=== PATIENT | female | born 1930 | race Asian ===

== ENCOUNTER 2016-12-06 17:08 | Inpatient (IN) | payer MEDICARE, MEDICAID ==
[~2016-12-06] VITALS: Ht 154.9 cm; Wt 59.0 kg
[~2016-12-06 17:08] MED LIST: ATARAX25 MG PO; CELEBREX100 MG PO; DIOVAN HCT 80-1 EACH PO; DOCUSATE SODIU250 MG PO; GABAPENTIN100 MG PO; GLUCOPHAGE500 MG PO; JANUVIA100 MG PO; PLAVIX75 MG PO; STARLIX120 MG PO; Vitamin D2 PO
[2016-12-06 17:35] VITALS: BP 159/63
[2016-12-06] MEDS ORDERED: Mylanta II UD 30ml ORAL PRN (20:45)
[2016-12-06] MEDS ORDERED: LORazepam Inj 2mg/ml 1ml IV PRN (20:45)
[2016-12-06] MEDS ORDERED: Zolpidem 5mg tab ORAL PRN (20:45)
[2016-12-06 20:56] VITALS: BP 149/63
[2016-12-06] MEDS ORDERED: HydrOXYzine 25mg tab ORAL PRN (21:00)
[2016-12-06 21:35] LABS: APPEARANCE,URINE CLEAR; KETONES,URINE NEGATIVE (NEGATIVE); LEUKOCYTE ESTERASE ,URINE NEGATIVE (NEGATIVE); NITRITE,URINE NEGATIVE (NEGATIVE); PH,URINE 8 (4.5-8.0); PROTEIN,URINE NEGATIVE (NEGATIVE); UROBILINOGEN,URINE NORMAL MG/DL (0.0-1.0)
[2016-12-06 21:41] LABS: ANION GAP 13 (5-15); BASOPHILS % (AUTO) 1.3 % (0.0-2.0); CALCIUM 9.5 mg/dL (8.6-10.2); CARBON DIOXIDE 26 mEQ/L (20-30); CHLORIDE 89 mEQ/L (98-107); CREATININE 0.8 mg/dL (0.5-0.9); EOSINOPHILS % (AUTO) 1.6 % (0.0-3.0); HEMOLYSIS 27; LYMPHOCYTES % (AUTO) 17.1 % (20.0-45.0); MEAN CORPUSCULAR HEMOGLOBIN 34.4 PG (27.0-31.0); MEAN CORPUSCULAR HGB CONC 36.8 G/DL (32.0-36.0); MEAN CORPUSCULAR VOLUME 93 FL (80-99); MEAN PLATELET VOLUME 6.2 FL (6.5-10.1); MONOCYTES % (AUTO) 8.3 % (1.0-10.0); NEUTROPHILS % (AUTO) 71.7 % (45.0-75.0); PLATELET COUNT 279 K/UL (150-450); POTASSIUM 4.9 mEQ/L (3.4-4.9); RED BLOOD COUNT 4.14 M/UL (4.20-5.40); RED CELL DISTRIBUTION WIDTH 10.6 % (11.6-14.8); SODIUM 128 mEQ/L (135-145); WHITE BLOOD COUNT 11.7 K/UL (4.8-10.8)
--- NOTE | 2016-12-06 21:50 | Emergency Room Report ---
History of Present Illness General Chief Complaint: Multiple Trauma/Fall Source: Patient, Medical Record Present Illness HPI This patient was using her walker and was trying to turn and lost her balance and fell onto her left side. She fell onto her left shoulder and left knee. She complains of severe pain in her left shoulder and knee whenever she attempts to move either joint. She denies hip pain. She denies head injury. She denies neck pain. She denies chest pain or shortness of breath. She denies abdominal pain. She has no other complaints. Allergies: Coded Allergies: No Known Allergies (Verified , 09/22/12) Patient History Past Medical History: see triage record, DM, HTN, dementia Social History: Denies: alcohol use, drug use, smoking Last Menstrual Period: post Now: No : 5 Para: 5 Reviewed Nursing Documentation: PMH: Agreed, PSxH: Agreed Nursing Documentation-PMH Past Medical History: No History, Except For Hx Cardiac Problems: Yes Hx Hypertension: Yes Hx Diabetes: Yes - 1986 Hx Cancer: No Hx Gastrointestinal Problems: Yes Hx Neurological Problems: No Review of Systems All Other Systems: negative except mentioned in HPI Physical Exam Vital Signs Date Time Temp Pulse Resp B/P Pulse Ox O2 Delivery O2 Flow Rate FiO2 12/06/16 17:03 97.0 88 18 174/79 99 12/06/16 17:35 Room Air Sp02 EP Interpretation: reviewed, normal General Appearance: no apparent distress, alert, GCS 15, non-toxic Head: normocephalic, atraumatic Eyes: bilateral eye PERRL, bilateral eye normal inspection ENT: hearing grossly normal, normal pharynx, no angioedema, normal voice Neck: full range of motion, supple/symm/no masses Respiratory: chest non-tender, lungs clear, normal breath sounds, speaking full sentences Cardiovascular #1: regular rate, rhythm, no edema Gastrointestinal: normal bowel sounds, non tender, soft, non-distended, no guarding, no rebound Rectal: deferred Musculoskeletal: back normal, other - Range of motion limited in the left shoulder secondary to pain. However, able to range of motion passively. Left knee with pain with range of motion. Tender to palpation over the patella with associated swelling. Neurologic: alert, oriented x3, responsive, motor strength/tone normal, sensory intact, speech normal Psychiatric: judgement/insight normal, mood/affect normal, no suicidal/ homicidal ideation Skin: normal color, no rash, warm/dry, well hydrated Medical Decision Making Diagnostic Impression: Primary Impression: Shoulder injury Additional Impressions: Rotator cuff injury Patella fracture ER Course This elderly female presents status post mechanical fall. She is unable to ambulate. She is found to have a nondisplaced patellar fracture. Likely she also has a rotator cuff tear. The patient was placed in a knee immobilizer and a sling for her left arm. The family is very concerned as they were unable to get her up from the couch despite multiple people attempting. This patient will be admitted for pain control and possible placement in a rehabilitation facility. Labs Test 12/06/16 21:05 White Blood Count 11.7 K/UL (4.8-10.8) Red Blood Count 4.14 M/UL (4.20-5.40) Hemoglobin 14.2 G/DL (12.0-16.0) Hematocrit 38.6 % (37.0-47.0) Mean Corpuscular Volume 93 FL (80-99) Mean Corpuscular Hemoglobin 34.4 PG (27.0-31.0) Mean Corpuscular Hemoglobin Concent 36.8 G/DL (32.0-36.0) Red Cell Distribution Width 10.6 % (11.6-14.8) Platelet Count 279 K/UL (150-450) Mean Platelet Volume 6.2 FL (6.5-10.1) Neutrophils (%) (Auto) 71.7 % (45.0-75.0) Lymphocytes (%) (Auto) 17.1 % (20.0-45.0) Monocytes (%) (Auto) 8.3 % (1.0-10.0) Eosinophils (%) (Auto) 1.6 % (0.0-3.0) Basophils (%) (Auto) 1.3 % (0.0-2.0) Urine Color Pale yellow Urine Appearance Clear Urine pH 8 (4.5-8.0) Urine Specific [place] 1.010 (1.005-1.035) Urine Protein Negative (NEGATIVE) Urine Glucose (UA) 3+ (NEGATIVE) Urine Ketones Negative (NEGATIVE) Urine Occult Blood Negative (NEGATIVE) Urine Nitrite Negative (NEGATIVE) Urine Bilirubin Negative (NEGATIVE) Urine Urobilinogen Normal MG/DL (0.0-1.0) Urine Leukocyte Esterase Negative (NEGATIVE) Sodium Level 128 mEQ/L (135-145) Potassium Level 4.9 mEQ/L (3.4-4.9) Chloride Level 89 mEQ/L (98-107) Carbon Dioxide Level 26 mEQ/L (20-30) Anion Gap 13 (5-15) Blood Urea Nitrogen 16 mg/dL (7-23) Creatinine 0.8 mg/dL (0.5-0.9) Estimat Glomerular Filtration Rate mL/min (>60) Glucose Level 138 mg/dL (74-106) Calcium Level 9.5 mg/dL (8.6-10.2) Last Vital Signs Date Time Temp Pulse Resp B/P Pulse Ox O2 Delivery O2 Flow Rate FiO2 12/06/16 20:56 97.0 78 22 149/63 99 Room Air Disposition: ADMITTED INPATIENT Condition: Stable Referrals: NON PHYSICIAN (PCP) DOMINIQUE CHONG D.O. Dec 06, 2016 21:50
[2016-12-06 21:53] LABS: RBC,URINE 0 /HPF (0 - 2); WBC,URINE 0 /HPF (0 - 2)
[2016-12-06] MEDS: NovoLOG Insulin Flexpen SUBQ SCH (22:00)
[2016-12-06 22:01] VITALS: BP 143/66
[2016-12-07] VITALS: BP 154/86
[2016-12-07] MEDS: Heparin 5000 units/ml inj SUBQ SCH ×3 (00:10→21:59)
[2016-12-07] MEDS: NovoLOG Insulin Flexpen SUBQ SCH ×3 (00:11→11:30)
[2016-12-07 04:48] VITALS: BP 159/78
[2016-12-07] MEDS: Morphine Sulfate 2mg/ml Inj IVP PRN ×2 (05:39→10:42)
[2016-12-07 07:05] LABS: BASOPHILS % (AUTO) 0.9 % (0.0-2.0); EOSINOPHILS % (AUTO) 2.9 % (0.0-3.0); LYMPHOCYTES % (AUTO) 13.9 % (20.0-45.0); MEAN CORPUSCULAR HEMOGLOBIN 31.6 PG (27.0-31.0); MEAN CORPUSCULAR VOLUME 90 FL (80-99); MEAN PLATELET VOLUME 6.5 FL (6.5-10.1); MONOCYTES % (AUTO) 9.4 % (1.0-10.0); NEUTROPHILS % (AUTO) 72.9 % (45.0-75.0); PLATELET COUNT 309 K/UL (150-450); RED CELL DISTRIBUTION WIDTH 10.6 % (11.6-14.8); WHITE BLOOD COUNT 9.7 K/UL (4.8-10.8)
[2016-12-07 08:00] VITALS: BP 163/76
[2016-12-07 08:47] LABS: ALANINE AMINOTRANSFERASE 11 U/L (3-33); ALBUMIN/GLOBULIN RATIO 1.3 (1.0-2.7); ANION GAP 10 (5-15); ASPARTATE AMINO TRANSFERASE 15 U/L (5-40); CALCIUM 9.1 mg/dL (8.6-10.2); CARBON DIOXIDE 28 mEQ/L (20-30); CHLORIDE 89 mEQ/L (98-107); CREATININE 0.8 mg/dL (0.5-0.9); HEMOLYSIS 17; POTASSIUM 4.7 mEQ/L (3.4-4.9); SODIUM 127 mEQ/L (135-145); TOTAL PROTEIN 6.9 g/dL (6.6-8.7)
[2016-12-07] MEDS: Miralax 17gm pkt ORAL PRN (09:11)
--- NOTE | 2016-12-07 10:20 | Diagnostic Imaging Report ---
Indications: Shoulder trauma, pain Technique: AP and lateral left shoulder Findings: Comparison: None There is suggestion of cortical discontinuity at the margins of the greater tuberosity of the left humeral head. No additional fracture, dislocation, joint space widening, overlying soft tissue swelling/mass/foreign body or other acute change identified. IMPRESSION: Suggestion of nondisplaced fracture through the greater tuberosity of the left humeral head. This finding not described in [facility] preliminary report, significant discrepancy.
--- NOTE | 2016-12-07 10:24 | Diagnostic Imaging Report ---
Indications: Chest trauma, pain Technique: Portable AP chest Findings: Comparison: 09/23 12 Cardiac silhouette remains normal in size. Pulmonary vasculature remains within normal limits. Linear densities again noted in right midlung. Lungs and pleura remain otherwise clear. Calcification and elongation of the aortic arch again noted. Questionable lucency traversing base and visualized portion of the greater tuberosity of left humerus not seen previously.. IMPRESSION: Questionable fracture greater tuberosity left humeral head. This finding not described in [facility] preliminary report. No other evidence of acute injury or other acute pathology stable chronic changes as described
--- NOTE | 2016-12-07 10:59 | History and Physical ---
History of Present Illness General Date patient seen: Dec 07, 2016 Time patient seen: 10:15 Reason for Hospitalization: Multiple Trauma/Fall Present Illness HPI 86 y/old female with hx of HTN, DM, left eye blindness was using her walker and was trying to turn, but instead lost her balance and fell onto her left side. She fell onto her left shoulder and left knee. She complained of severe pain in her left shoulder and knee whenever she attempted to move either joint. Unable to ambulate She denies hip pain. She denied head injury. She denied neck pain. She denied chest pain or shortness of breath. She denied abdominal pain. She had no other complaints. Workuo revealed mild leukocytosis, UA negative Na 128 CXR with Questionable fracture greater tuberosity left humeral head. left shoulder X ray with nondisplaced fracture through the greater tuberosity of the left humeral head. left knee X ray - suggestive iof nondisplaced fracture of the mid -patella. Allergies: Coded Allergies: No Known Allergies (Verified , 09/22/12) Medication History Scheduled Celecoxib* (Celebrex*), 100 MG PO BID, (Reported) Clopidogrel Bisulfate* (Plavix*), 75 MG PO DAILY, (Reported) Docusate Sodium* (Docusate Sodium*), 250 MG PO TID, (Reported) Gabapentin* (Gabapentin*), 100 MG PO HS, (Reported) Hydroxyzine HCl (Hydroxyzine HCl), 25 MG PO QID, (Reported) Metformin Hcl* (Glucophage*), 500 MG PO BID, (Reported) Nateglinide (Starlix), 120 MG PO TID, (Reported) Sitagliptin (Januvia), 100 MG PO DAILY, (Reported) Valsartan/Hydrochlorothiazide 80-12.5MG (Diovan Hct 80-12.5 Mg Tablet), 1 TAB PO DAILY, (Reported) Miscellaneous Medications [Vitamin D2], 1.25 MG PO, (Reported) Patient History History Provided By: Medical Record Healthcare decision maker IMELDA MATHEW, GRANDDAUGHTER ([phone]) Resuscitation status Full Code Advanced Directive on File No Review of Systems ROS Narrative unavailable due to patient LOC Physical Exam General Appearance: no apparent distress, alert, other - awake, alert, no acute distress , elderly, Polish speaking female Lines, tubes and drains: peripheral HEENT: normocephalic, atraumatic, anicteric, mucous membranes moist, PERRL, other - L eye blind Neck: non-tender, supple Respiratory/Chest: lungs clear, no respiratory distress, no accessory muscle use Cardiovascular/Chest: normal peripheral pulses, normal rate, no JVD Abdomen: normal bowel sounds, non tender, soft Extremities: other - LUE in sling, NV intact , L knee with knee immobilizer Skin Exam: normal pigmentation, warm/dry Neurologic: abnormal gait - baseline with walker , alert Musculoskeletal: atrophy - BLE, weakness BLE Last 24 Hour Vital Signs Date Time Temp Pulse Resp B/P Pulse Ox O2 Delivery O2 Flow Rate FiO2 12/07/16 08:00 97.4 83 18 163/76 97 Room Air 12/07/16 06:09 97.5 12/07/16 04:48 97.5 77 20 159/78 97 Room Air 12/07/16 00:00 97.5 77 20 154/86 98 Room Air 12/06/16 22:15 97.0 74 22 143/66 99 Room Air 12/06/16 22:01 97.0 74 22 143/66 99 Room Air 12/06/16 20:56 97.0 78 22 149/63 99 Room Air 12/06/16 17:35 97.0 75 22 159/63 99 Room Air 12/06/16 17:03 97.0 88 18 174/79 99 Intake and Output 12/06/16 12/07/16 19:00 07:00 Intake Total 252 ml Balance 252 ml Intake Oral 252 ml Laboratory Tests Test 12/06/16 21:05 12/07/16 05:10 White Blood Count 11.7 K/UL (4.8-10.8) H 9.7 K/UL (4.8-10.8) Red Blood Count 4.14 M/UL (4.20-5.40) L 4.00 M/UL (4.20-5.40) L Hemoglobin 14.2 G/DL (12.0-16.0) 12.7 G/DL (12.0-16.0) Hematocrit 38.6 % (37.0-47.0) 36.2 % (37.0-47.0) L Mean Corpuscular Volume 93 FL (80-99) 90 FL (80-99) Mean Corpuscular Hemoglobin 34.4 PG (27.0-31.0) H 31.6 PG (27.0-31.0) H Mean Corpuscular Hemoglobin Concent 36.8 G/DL (32.0-36.0) H 35.0 G/DL (32.0-36.0) Red Cell Distribution Width 10.6 % (11.6-14.8) L 10.6 % (11.6-14.8) L Platelet Count 279 K/UL (150-450) 309 K/UL (150-450) Mean Platelet Volume 6.2 FL (6.5-10.1) L 6.5 FL (6.5-10.1) Neutrophils (%) (Auto) 71.7 % (45.0-75.0) 72.9 % (45.0-75.0) Lymphocytes (%) (Auto) 17.1 % (20.0-45.0) L 13.9 % (20.0-45.0) L Monocytes (%) (Auto) 8.3 % (1.0-10.0) 9.4 % (1.0-10.0) Eosinophils (%) (Auto) 1.6 % (0.0-3.0) 2.9 % (0.0-3.0) Basophils (%) (Auto) 1.3 % (0.0-2.0) 0.9 % (0.0-2.0) Urine Color Pale yellow Urine Appearance Clear Urine pH 8 (4.5-8.0) Urine Specific [place] 1.010 (1.005-1.035) Urine Protein Negative (NEGATIVE) Urine Glucose (UA) 3+ (NEGATIVE) H Urine Ketones Negative (NEGATIVE) Urine Occult Blood Negative (NEGATIVE) Urine Nitrite Negative (NEGATIVE) Urine Bilirubin Negative (NEGATIVE) Urine Urobilinogen Normal MG/DL (0.0-1.0) Urine Leukocyte Esterase Negative (NEGATIVE) Urine RBC 0 /HPF (0 - 2) Urine WBC 0 /HPF (0 - 2) Urine Squamous Epithelial Cells None /LPF (NONE/OCC) Urine Bacteria None /HPF (NONE) Sodium Level 128 mEQ/L (135-145) L 127 mEQ/L (135-145) L Potassium Level 4.9 mEQ/L (3.4-4.9) 4.7 mEQ/L (3.4-4.9) Chloride Level 89 mEQ/L (98-107) L 89 mEQ/L (98-107) L Carbon Dioxide Level 26 mEQ/L (20-30) 28 mEQ/L (20-30) Anion Gap 13 (5-15) 10 (5-15) Blood Urea Nitrogen 16 mg/dL (7-23) 13 mg/dL (7-23) Creatinine 0.8 mg/dL (0.5-0.9) 0.8 mg/dL (0.5-0.9) Estimat Glomerular Filtration Rate mL/min (>60) mL/min (>60) Glucose Level 138 mg/dL (74-106) H 142 mg/dL (74-106) H Calcium Level 9.5 mg/dL (8.6-10.2) 9.1 mg/dL (8.6-10.2) Total Bilirubin < 0.2 mg/dL (0.0-1.2) Aspartate Amino Transf (AST/SGOT) 15 U/L (5-40) Alanine Aminotransferase (ALT/SGPT) 11 U/L (3-33) Alkaline Phosphatase 40 U/L (35-104) Total Protein 6.9 g/dL (6.6-8.7) Albumin 4.0 g/dL (3.5-5.2) Globulin 2.9 g/dL Albumin/Globulin Ratio 1.3 (1.0-2.7) Height (Feet): 5 Height (Inches): 1.00 Weight (Pounds): 130 Medications Current Medications Medications (Trade) Dose Ordered Sig/Pavel Route PRN Reason Start Time Stop Time Status Last Admin Dose Admin Acetaminophen (Tylenol) 650 mg Q4H PRN ORAL fever 12/06/16 20:45 01/05/17 20:44 Al Hydroxide/Mg Hydroxide (Mylanta II) 30 ml Q6H PRN ORAL dyspepsia 12/06/16 20:45 01/05/17 20:44 Clopidogrel Bisulfate (Plavix) 75 mg DAILY ORAL 12/07/16 09:00 01/06/17 08:59 12/07/16 09:11 Dextrose (Dextrose 50%) STAT PRN IV Hypoglycemia 12/06/16 20:45 01/05/17 20:44 Gabapentin (Neurontin) 100 mg DAILY ORAL 12/07/16 09:00 01/06/17 08:59 12/07/16 09:11 Heparin Sodium (Porcine) (Heparin 5000 units/ml) 5,000 units EVERY 12 HOURS SUBQ 12/06/16 22:00 01/05/17 21:59 12/07/16 09:22 Hydroxyzine HCl (Atarax) 25 mg QID PRN ORAL Itching 12/06/16 21:00 01/05/17 20:59 Insulin Aspart (NovoLOG) BEFORE MEALS AND HS SUBQ 12/06/16 22:00 01/05/17 21:59 Lorazepam (Ativan 2mg/ml 1ml) 0.5 mg Q4H PRN IV For Anxiety 12/06/16 20:45 12/13/16 20:44 Morphine Sulfate (Morphine Sulfate) 2 mg EVERY 4 HOURS PRN IVP For Pain 4-6 12/06/16 20:45 12/13/16 20:44 12/07/16 10:42 Ondansetron HCl (Zofran) 4 mg Q6H PRN IVP Nausea & Vomiting 12/06/16 20:45 01/05/17 20:44 Polyethylene Glycol (Miralax) 17 gm HSPRN PRN ORAL Constipation 12/06/16 20:45 01/05/17 20:44 12/07/16 09:11 Zolpidem Tartrate (Ambien) 5 mg HSPRN PRN ORAL Insomnia 12/06/16 20:45 01/05/17 20:44 Assessment/Plan Assessment/Plan ASSESSMENT s/p mechanical fall acute hyponatremia ( likely 2 to diuretic use) nondisplaced fracture left shoulder nondisplaced fracture of the mid-patella left shoulder pain left knee pain HTN DM L eye blindness PLAN OF CARE MS floor CT L shoulder ( recommedned by radiology) sling on pain management ortho evla fall precaution PT/OT DVT prophylaxis dc HctZ, hypoNa likely 2 to diuretic use, gentle IV hydration with NS BP management with ARB and optimize as needed BS management with SS of insulin bowel regimen case discussed and evaluated by supervising physician Baljinder Jay)Halima NP Dec 07, 2016 10:59
[2016-12-07 12:00] VITALS: BP 135/64
--- NOTE | 2016-12-07 13:41 | Diagnostic Imaging Report ---
Indications: Fall, left knee injury and pain Technique: 3 views left knee. Findings: Comparison: None Prepatellar soft tissues are swollen. Linear lucency traverses the midportion of the patella on 2 of 3 views. Suggestion of mildly increased attenuation in suprapatellar bursa. No additional Fracture, dislocation, joint space widening , soft tissue gas or foreign body, or other acute changes are identified. Prominent arterial mural calcifications. IMPRESSION: Suggestion of nondisplaced fracture of the mid-patella. Patellar sunrise view may be obtained to ascertain, as clinically indicated. Associated prepatellar soft tissue swelling, possible small suprapatellar effusion Arteriosclerosis This correlates with [facility] preliminary report.
[2016-12-07 16:00] VITALS: BP 137/60
[2016-12-07] MEDS: metFORMIN 500mg tab ORAL SCH (17:09)
[2016-12-07 20:00] VITALS: BP 151/80
[2016-12-08] VITALS: BP 140/70
[2016-12-08 04:00] VITALS: BP 142/72
[2016-12-08] MEDS: sitaGLIPtin 50mg tab ORAL SCH (06:49)
[2016-12-08 07:21] LABS: ANION GAP 12 (5-15); CALCIUM 8.8 mg/dL (8.6-10.2); CARBON DIOXIDE 27 mEQ/L (20-30); CHLORIDE 91 mEQ/L (98-107); CREATININE 0.9 mg/dL (0.5-0.9); HEMOLYSIS 22; SODIUM 130 mEQ/L (135-145)
[2016-12-08 07:22] LABS: BASOPHILS % (AUTO) 0.8 % (0.0-2.0); EOSINOPHILS % (AUTO) 3.5 % (0.0-3.0); LYMPHOCYTES % (AUTO) 20.3 % (20.0-45.0); MEAN CORPUSCULAR HEMOGLOBIN 31.8 PG (27.0-31.0); MEAN CORPUSCULAR HGB CONC 34.6 G/DL (32.0-36.0); MEAN CORPUSCULAR VOLUME 92 FL (80-99); MEAN PLATELET VOLUME 6.3 FL (6.5-10.1); MONOCYTES % (AUTO) 10.7 % (1.0-10.0); NEUTROPHILS % (AUTO) 64.7 % (45.0-75.0); PLATELET COUNT 305 K/UL (150-450); RED BLOOD COUNT 3.54 M/UL (4.20-5.40); RED CELL DISTRIBUTION WIDTH 10.8 % (11.6-14.8); WHITE BLOOD COUNT 9.2 K/UL (4.8-10.8)
[2016-12-08 07:58] VITALS: BP 162/87
[2016-12-08] MEDS: Morphine Sulfate 2mg/ml Inj IVP PRN (08:11)
[2016-12-08] MEDS: metFORMIN 500mg tab ORAL SCH ×2 (08:11→18:31)
[2016-12-08] MEDS: Heparin 5000 units/ml inj SUBQ SCH ×2 (08:12→20:18)
--- NOTE | 2016-12-08 10:33 | Diagnostic Imaging Report ---
Indication: Fracture Technique: CT scan of the left humerus performed without intravenous contrast material. Axial, coronal, and sagittal images were generated. Dose: Total Dose Length Product - DLP [address] Dose Index - CTDIvol(s) 11.5 to mGy. Comparison: None Findings: Examination demonstrates diffuse osteopenia. There is fracture of the greater tuberosity. This is comminuted. No dislocation. Impression: Comminuted fracture of the greater tuberosity. Osteopenia. The CT scanner at [facility] is accredited by the [employer] and the scans are performed using protocols designed to limit radiation exposure to as low as reasonably achievable to attain images of sufficient resolution adequate for diagnostic evaluation.
--- NOTE | 2016-12-08 10:35 | Diagnostic Imaging Report ---
Indication: PAIN Technique: XRAY ELBOW MIN 3 VIEWS LEFT Comparison: None. Findings: The bones are diffusely osteopenic. There is elevation of the anterior and posterior fat pads. Some irregularity is noted in the region of the radial head. Calcification is also noted adjacent to the capitellum. The remainder the bones are intact. Impression: Osteopenia. Elbow effusion. Irregularity of the radial head. The possibility of a radial head fracture cannot be excluded. Calcification adjacent to the capitellum, probably old.
[2016-12-08 12:00] VITALS: BP 159/88
[2016-12-08] MEDS: Docusate 250mg cap ORAL SCH ×2 (12:23→16:50)
--- NOTE | 2016-12-08 14:00 | Pulmonology Progress Note ---
Assessment/Plan Assessment/Plan ASSESSMENT s/p mechanical fall acute hyponatremia ( likely 2 to diuretic use) nondisplaced fracture of left greater tuberosity possible nondisplaced fracture of the radial head , possible nondisplaced fracture of the mid-patella left shoulder pain left knee pain HTN DM L eye blindness PLAN OF CARE MS floor CT L shoulder -nondisplaced fracture of left greater tuberosity and possible nondisplaced fracture of the radial head , ortho eval appreciated per ortho both nonoperative sling for comfort pain management fall precaution PT/OT DVT prophylaxis off HctZ, hypoNa likely 2 to diuretic use, Na up to 130 gentle IV hydration with NS BP management with ARB and optimize as needed BS management with SS of insulin bowel regimen dc plan for short term rehab case discussed and evaluated by supervising physician Subjective Allergies: Coded Allergies: No Known Allergies (Verified , 09/22/12) Subjective pain controlled leukocytosis resolved, afebrile seen and evaluated by ortho Objective Last 24 Hour Vital Signs Date Time Temp Pulse Resp B/P Pulse Ox O2 Delivery O2 Flow Rate FiO2 12/08/16 12:00 97.5 98 19 159/88 95 Room Air 12/08/16 08:41 97.5 12/08/16 07:58 97.5 87 18 162/87 95 Room Air 12/08/16 04:00 97.2 88 18 142/72 95 Room Air 12/08/16 00:00 97.5 86 19 140/70 96 Room Air 12/07/16 20:00 96.3 85 18 151/80 97 Room Air 12/07/16 16:00 97.4 77 20 137/60 97 Room Air Intake and Output 12/07/16 12/08/16 18:59 06:59 Intake Total 990 ml 600 ml Output Total 800 ml 1800 ml Balance 190 ml -1200 ml Intake Oral 840 ml IV Total 150 ml 600 ml Output Urine Total 800 ml 1800 ml # Bowel Movements 1 Objective General Appearance: no apparent distress, alert, awake, no acute distress , elderly, Maori speaking female Lines, tubes and drains: peripheral HEENT: normocephalic, atraumatic, anicteric, mucous membranes moist, PERRL, other - L eye blind Neck: non-tender, supple Respiratory/Chest: lungs clear, no respiratory distress, no accessory muscle use Cardiovascular/Chest: normal peripheral pulses, normal rate, no JVD Abdomen: normal bowel sounds, non tender, soft Extremities: other - LUE in sling, NV intact , L knee with knee immobilizer Skin Exam: normal pigmentation, warm/dry Neurologic: abnormal gait, baseline with walker , alert Musculoskeletal: atrophy - BLE, weakness BLE Laboratory Tests 12/08/16 05:00: White Blood Count 9.2, Red Blood Count 3.54L, Hemoglobin 11.3L, Hematocrit 32.5L , Mean Corpuscular Volume 92, Mean Corpuscular Hemoglobin 31.8H, Mean Corpuscular Hemoglobin Concent 34.6, Red Cell Distribution Width 10.8L, Platelet Count 305, Mean Platelet Volume 6.3L, Neutrophils (%) (Auto) 64.7, Lymphocytes (%) (Auto) 20.3, Monocytes (%) (Auto) 10.7H, Eosinophils (%) (Auto) 3.5H, Basophils (%) (Auto) 0.8, Sodium Level 130L, Potassium Level 5.0H, Chloride Level 91L, Carbon Dioxide Level 27, Anion Gap 12, Blood Urea Nitrogen 19, Creatinine 0.9, Estimat Glomerular Filtration Rate , Glucose Level 151H, Calcium Level 8.8 Current Medications Medications (Trade) Dose Ordered Sig/Pavel Route PRN Reason Start Time Stop Time Status Last Admin Dose Admin Acetaminophen (Tylenol) 650 mg Q4H PRN ORAL fever 12/06/16 20:45 01/05/17 20:44 Al Hydroxide/Mg Hydroxide (Mylanta II) 30 ml Q6H PRN ORAL dyspepsia 12/06/16 20:45 01/05/17 20:44 Clopidogrel Bisulfate (Plavix) 75 mg DAILY ORAL 12/07/16 09:00 01/06/17 08:59 12/08/16 08:11 Dextrose STAT PRN IV Hypoglycemia 12/06/16 20:45 01/05/17 20:44 Docusate Sodium (Colace) 250 mg TID ORAL 12/08/16 13:00 01/07/17 12:59 12/08/16 12:23 Gabapentin (Neurontin) 100 mg DAILY ORAL 12/07/16 09:00 01/06/17 08:59 12/08/16 08:11 Heparin Sodium (Porcine) (Heparin 5000 units/ml) 5,000 units EVERY 12 HOURS SUBQ 12/06/16 22:00 01/05/17 21:59 12/08/16 08:12 Hydroxyzine HCl (Atarax) 25 mg QID PRN ORAL Itching 12/06/16 21:00 01/05/17 20:59 Lorazepam (Ativan 2mg/ml 1ml) 0.5 mg Q4H PRN IV For Anxiety 12/06/16 20:45 12/13/16 20:44 Metformin HCl (Glucophage) 500 mg BID ORAL 12/07/16 18:00 01/06/17 17:59 12/08/16 08:11 Morphine Sulfate (Morphine Sulfate) 2 mg EVERY 4 HOURS PRN IVP For Pain 4-12/06/16 20:45 12/13/16 20:44 12/08/16 08:11 Nateglinide (Starlix) 120 mg TIAC ORAL 12/07/16 16:30 01/06/17 16:29 12/08/16 12:23 Ondansetron HCl (Zofran) 4 mg Q6H PRN IVP Nausea & Vomiting 12/06/16 20:45 01/05/17 20:44 Polyethylene Glycol (Miralax) 17 gm HSPRN PRN ORAL Constipation 12/06/16 20:45 01/05/17 20:44 12/07/16 09:11 Sitagliptin Phosphate (Januvia) 50 mg ACBREAKFAST ORAL 12/08/16 06:30 01/07/17 06:29 12/08/16 06:49 Sodium Chloride (Sodium Chloride 1000ml bag) 1,000 ml @ 50 mls/hr Q20H IV 12/07/16 15:00 01/06/17 14:59 12/07/16 14:56 Zolpidem Tartrate (Ambien) 5 mg HSPRN PRN ORAL Insomnia 12/06/16 20:45 01/05/17 20:44 Halima Gale NP ([place]anchtein) Dec 08, 2016 14:00
[2016-12-08] MEDS ORDERED: DIOVAN HCT 80MG1 TAB ORAL (14:02)
--- NOTE | 2016-12-08 14:04 | Discharge Instructions ---
Discharge Instructions Discharge Instructions Follow up with: MD at the facility Services at Discharge: physical therapy, occupational therapy Diet: diabetic calorie control, cardiac 2 GM Na, low fat Activity: as tolerated Special Instructions sling LUE for comfort, knee immobilizer L knee, L greater tuberosity nondisplaced fracture not operative- per ortho consult For Congestive Heart Failure Reminder Report to your physician any weight gain of 5 pounds or more in one week. Baljinder (Ursulastella)Halima NP Dec 08, 2016 14:04
[2016-12-08 20:00] VITALS: BP 155/88
[2016-12-08] MEDS: Miralax 17gm pkt ORAL PRN (20:16)
[2016-12-09 01:00] VITALS: BP 156/80
[2016-12-09] MEDS: sitaGLIPtin 50mg tab ORAL SCH (05:41)
[2016-12-09 07:44] VITALS: BP 152/80
[2016-12-09] MEDS: Docusate 250mg cap ORAL SCH ×3 (08:09→18:07)
[2016-12-09] MEDS: Morphine Sulfate 2mg/ml Inj IVP PRN ×2 (08:09→18:07)
[2016-12-09] MEDS: metFORMIN 500mg tab ORAL SCH ×2 (08:10→18:07)
[2016-12-09] MEDS: Heparin 5000 units/ml inj SUBQ SCH ×2 (08:18→20:57)
[2016-12-09 12:00] VITALS: BP 148/76
--- NOTE | 2016-12-09 12:41 | Pulmonology Progress Note ---
Assessment/Plan Assessment/Plan ASSESSMENT s/p mechanical fall acute hyponatremia ( likely 2 to diuretic use) nondisplaced fracture of left greater tuberosity possible nondisplaced fracture of the radial head , possible nondisplaced fracture of the mid-patella left shoulder pain left knee pain HTN DM L eye blindness PLAN OF CARE MS floor CT L shoulder -nondisplaced fracture of left greater tuberosity and possible nondisplaced fracture of the radial head , ortho eval appreciated per ortho both nonoperative sling for comfort pain management fall precaution PT/OT DVT prophylaxis off HctZ, hypoNa likely 2 to diuretic use, Na up to 130 gentle IV hydration with NS BP management with ARB and optimize as needed BS management with SS of insulin bowel regimen dc plan for short term rehab dc when placement found case discussed and evaluated by supervising physician Subjective Allergies: Coded Allergies: No Known Allergies (Verified , 09/22/12) Subjective pain controlled leukocytosis resolved, afebrile seen and evaluated by ortho Objective Last 24 Hour Vital Signs Date Time Temp Pulse Resp B/P Pulse Ox O2 Delivery O2 Flow Rate FiO2 12/09/16 08:39 98.1 12/09/16 07:44 98.1 96 19 152/80 94 Room Air 12/09/16 01:00 156/80 12/09/16 00:00 98.2 103 18 96 Room Air 12/08/16 20:00 97.0 110 20 155/88 94 Room Air Intake and Output 12/08/16 12/09/16 19:00 07:00 Intake Total 1020 ml 840 ml Output Total 1100 ml 1000 ml Balance -80 ml -160 ml Intake Oral 720 ml 240 ml IV Total 300 ml 600 ml Output Urine Total 1100 ml 1000 ml Objective General Appearance: no apparent distress, alert, awake, no acute distress , elderly, Mongolian speaking female Lines, tubes and drains: peripheral HEENT: normocephalic, atraumatic, anicteric, mucous membranes moist, PERRL, other - L eye blind Neck: non-tender, supple Respiratory/Chest: lungs clear, no respiratory distress, no accessory muscle use Cardiovascular/Chest: normal peripheral pulses, normal rate, no JVD Abdomen: normal bowel sounds, non tender, soft Extremities: other - LUE in sling, NV intact , L knee with knee immobilizer Skin Exam: normal pigmentation, warm/dry Neurologic: abnormal gait, baseline with walker , alert Musculoskeletal: atrophy - BLE, weakness BLE Current Medications Medications (Trade) Dose Ordered Sig/Pavel Route PRN Reason Start Time Stop Time Status Last Admin Dose Admin Acetaminophen (Tylenol) 650 mg Q4H PRN ORAL fever 12/06/16 20:45 01/05/17 20:44 Al Hydroxide/Mg Hydroxide (Mylanta II) 30 ml Q6H PRN ORAL dyspepsia 12/06/16 20:45 01/05/17 20:44 Clopidogrel Bisulfate (Plavix) 75 mg DAILY ORAL 12/07/16 09:00 01/06/17 08:59 12/09/16 08:09 Dextrose STAT PRN IV Hypoglycemia 12/06/16 20:45 01/05/17 20:44 Docusate Sodium (Colace) 250 mg TID ORAL 12/08/16 13:00 01/07/17 12:59 12/09/16 11:34 Gabapentin (Neurontin) 100 mg DAILY ORAL 12/07/16 09:00 01/06/17 08:59 12/09/16 08:09 Heparin Sodium (Porcine) (Heparin 5000 units/ml) 5,000 units EVERY 12 HOURS SUBQ 12/06/16 22:00 01/05/17 21:59 12/09/16 08:18 Hydroxyzine HCl (Atarax) 25 mg QID PRN ORAL Itching 12/06/16 21:00 01/05/17 20:59 Lorazepam (Ativan 2mg/ml 1ml) 0.5 mg Q4H PRN IV For Anxiety 12/06/16 20:45 12/13/16 20:44 Metformin HCl (Glucophage) 500 mg BID ORAL 12/07/16 18:00 01/06/17 17:59 12/09/16 08:10 Morphine Sulfate (Morphine Sulfate) 2 mg EVERY 4 HOURS PRN IVP For Pain 4-6 12/06/16 20:45 12/13/16 20:44 12/09/16 08:09 Nateglinide (Starlix) 120 mg TIAC ORAL 12/07/16 16:30 01/06/17 16:29 12/09/16 11:34 Ondansetron HCl (Zofran) 4 mg Q6H PRN IVP Nausea & Vomiting 12/06/16 20:45 01/05/17 20:44 Polyethylene Glycol (Miralax) 17 gm HSPRN PRN ORAL Constipation 12/06/16 20:45 01/05/17 20:44 12/08/16 20:16 Sitagliptin Phosphate (Januvia) 50 mg ACBREAKFAST ORAL 12/08/16 06:30 01/07/17 06:29 12/09/16 05:41 Sodium Chloride (Sodium Chloride 1000ml bag) 1,000 ml @ 50 mls/hr Q20H IV 12/07/16 15:00 01/06/17 14:59 12/08/16 16:50 Zolpidem Tartrate (Ambien) 5 mg HSPRN PRN ORAL Insomnia 12/06/16 20:45 01/05/17 20:44 Baljinder SilvaHalima dickinson NP Dec 09, 2016 12:40
[2016-12-09 21:00] VITALS: BP 154/84
[2016-12-09 23:46] VITALS: BP 157/77
[2016-12-10 04:00] VITALS: BP 149/78
[2016-12-10] MEDS: sitaGLIPtin 50mg tab ORAL SCH (06:23)
[2016-12-10 06:26] LABS: BASOPHILS % (AUTO) 1.6 % (0.0-2.0); EOSINOPHILS % (AUTO) 5.8 % (0.0-3.0); LYMPHOCYTES % (AUTO) 11.2 % (20.0-45.0); MEAN CORPUSCULAR HEMOGLOBIN 31.5 PG (27.0-31.0); MEAN CORPUSCULAR HGB CONC 34.1 G/DL (32.0-36.0); MEAN CORPUSCULAR VOLUME 93 FL (80-99); MEAN PLATELET VOLUME 6.1 FL (6.5-10.1); MONOCYTES % (AUTO) 9.5 % (1.0-10.0); NEUTROPHILS % (AUTO) 71.9 % (45.0-75.0); PLATELET COUNT 307 K/UL (150-450); RED BLOOD COUNT 3.93 M/UL (4.20-5.40); RED CELL DISTRIBUTION WIDTH 11.1 % (11.6-14.8); WHITE BLOOD COUNT 12.3 K/UL (4.8-10.8)
[2016-12-10 07:10] LABS: ANION GAP 15 (5-15); CALCIUM 8.9 mg/dL (8.6-10.2); CARBON DIOXIDE 23 mEQ/L (20-30); CHLORIDE 91 mEQ/L (98-107); CREATININE 0.9 mg/dL (0.5-0.9); HEMOLYSIS 5; SODIUM 129 mEQ/L (135-145)
[2016-12-10 08:00] VITALS: BP 158/79
[2016-12-10] MEDS: Sodium Polystyrene Sulfonate 15gm Powder ORAL SCH (09:03)
[2016-12-10] MEDS: Docusate 250mg cap ORAL SCH ×3 (09:03→17:16)
[2016-12-10] MEDS: Morphine Sulfate 2mg/ml Inj IVP PRN (09:03)
[2016-12-10] MEDS: metFORMIN 500mg tab ORAL SCH ×2 (09:12→17:16)
[2016-12-10] MEDS: Miralax 17gm pkt ORAL PRN (09:12)
[2016-12-10] MEDS: Heparin 5000 units/ml inj SUBQ SCH ×2 (09:22→23:11)
[2016-12-10 12:00] VITALS: BP 154/73
--- NOTE | 2016-12-10 13:28 | Consultation ---
DATE OF CONSULTATION: 12/07/2016 ORTHOPEDIC CONSULTATION REQUESTING PHYSICIAN: Jorge Pelaez M.D. DIAGNOSES: 1. Mildly comminuted nondisplaced left greater tuberosity shoulder fracture. 2. Left elbow contusion. HISTORY OF PRESENT ILLNESS: The patient is a Nepali only speaking 86-year-old, [id number] woman who slipped and fell. She complained of pain in the left upper extremity. Radiographs initially showed no significant abnormality, but CT scan showed a comminuted nondisplaced fracture of the greater tuberosity of the left side. There was also a possible nondisplaced fracture of the radial head. She was admitted to the hospital for comfort care. She was placed in a sling. ALLERGIES: She has no known drug allergies. PAST MEDICAL HISTORY: Significant for diabetes, hypertension, and dementia of Alzheimer's type. PHYSICAL EXAMINATION: GENERAL: She is well appearing and in no distress. A nurse advertising photographer was used during the evaluation. EXTREMITIES: She has ecchymosis about the left anterior arm. There was minimal discomfort with shoulder movement and also discomfort with elbow movement. She was hesitant to move beyond a 50 or 60 degree arc because of the severe pain. No provocative testing was performed. CT scan and radiographs revealed nondisplaced comminuted fracture of greater tuberosity on the left proximal humerus and no osseous abnormality of the elbow on plain radiographs. The patient sustained a slip and fall and a fracture of the greater tuberosity on the left. She left elbow. Follow up radiographs may reveal a nondisplaced radial neck or radial head fracture, both of which can be treated closed. No surgical intervention was recommended. Sling for comfort is the treatment of choice. Thank you for the opportunity to consult dictation. Joshua Serrano M.D. (CSM) DR: Kira JOB#: [id number] CC:
[2016-12-10 16:54] VITALS: BP 153/76
[2016-12-10 20:00] VITALS: BP 155/80
--- NOTE | 2016-12-10 22:27 | Pulmonology Progress Note ---
Assessment/Plan Problems: (1) Fracture (2) Multiple injuries due to trauma (3) Shoulder injury (4) Patella fracture (5) Rotator cuff injury Assessment/Plan pain management f/u Na pt/ot discharge planning Subjective ROS Limited/Unobtainable: No Interval Events: d/w daughter at the bed site Allergies: Coded Allergies: No Known Allergies (Verified , 09/22/12) Objective Last 24 Hour Vital Signs Date Time Temp Pulse Resp B/P Pulse Ox O2 Delivery O2 Flow Rate FiO2 12/10/16 20:00 98.2 103 18 155/80 96 Room Air 12/10/16 16:54 98.0 87 20 153/76 98 Room Air 12/10/16 12:00 97.0 87 20 154/73 98 Room Air 12/10/16 08:00 98.1 98 20 158/79 97 Room Air 12/10/16 04:00 97.6 102 18 149/78 97 Room Air 12/09/16 23:46 97.3 93 18 157/77 96 Room Air Intake and Output 12/09/16 12/10/16 19:00 07:00 Intake Total 780 ml 820 ml Output Total 1200 ml 1500 ml Balance -420 ml -680 ml Intake Oral 480 ml 220 ml IV Total 300 ml 600 ml Output Urine Total 1200 ml 1500 ml # Bowel Movements 1 Objective General Appearance: WD/WN, no apparent distress Lines, tubes and drains: peripheral HEENT: normocephalic, atraumatic Neck: non-tender, supple Respiratory/Chest: chest wall non-tender, rhonchi - bilaterally Cardiovascular/Chest: normal peripheral pulses, normal rate Abdomen: normal bowel sounds Genitourinary/Rectal: normal genital exam Extremities: normal range of motion Laboratory Tests 12/10/16 05:10: White Blood Count 12.3H, Red Blood Count 3.93L, Hemoglobin 12.4, Hematocrit 36.4L, Mean Corpuscular Volume 93, Mean Corpuscular Hemoglobin 31.5H, Mean Corpuscular Hemoglobin Concent 34.1, Red Cell Distribution Width 11.1L, Platelet Count 307, Mean Platelet Volume 6.1L, Neutrophils (%) (Auto) 71.9, Lymphocytes (%) (Auto) 11.2L, Monocytes (%) (Auto) 9.5, Eosinophils (%) (Auto) 5.8H, Basophils (%) (Auto) 1.6, Sodium Level 129L, Potassium Level 5.0H, Chloride Level 91L, Carbon Dioxide Level 23, Anion Gap 15, Blood Urea Nitrogen 20, Creatinine 0.9, Estimat Glomerular Filtration Rate , Glucose Level 205H, Calcium Level 8.9 Current Medications Medications (Trade) Dose Ordered Sig/Pavel Route PRN Reason Start Time Stop Time Status Last Admin Dose Admin Acetaminophen (Tylenol) 650 mg Q4H PRN ORAL fever 12/06/16 20:45 01/05/17 20:44 Al Hydroxide/Mg Hydroxide (Mylanta II) 30 ml Q6H PRN ORAL dyspepsia 12/06/16 20:45 01/05/17 20:44 Clopidogrel Bisulfate (Plavix) 75 mg DAILY ORAL 12/07/16 09:00 01/06/17 08:59 12/10/16 09:03 Dextrose STAT PRN IV Hypoglycemia 12/06/16 20:45 01/05/17 20:44 Docusate Sodium (Colace) 250 mg TID ORAL 12/08/16 13:00 01/07/17 12:59 12/10/16 17:16 Gabapentin (Neurontin) 100 mg DAILY ORAL 12/07/16 09:00 01/06/17 08:59 12/10/16 09:03 Heparin Sodium (Porcine) (Heparin 5000 units/ml) 5,000 units EVERY 12 HOURS SUBQ 12/06/16 22:00 01/05/17 21:59 12/10/16 09:22 Hydroxyzine HCl (Atarax) 25 mg QID PRN ORAL Itching 12/06/16 21:00 01/05/17 20:59 Lorazepam (Ativan 2mg/ml 1ml) 0.5 mg Q4H PRN IV For Anxiety 12/06/16 20:45 12/13/16 20:44 Metformin HCl (Glucophage) 500 mg BID ORAL 12/07/16 18:00 01/06/17 17:59 12/10/16 17:16 Morphine Sulfate (Morphine Sulfate) 2 mg EVERY 4 HOURS PRN IVP For Pain 4-6 12/06/16 20:45 12/13/16 20:44 12/10/16 09:03 Nateglinide (Starlix) 120 mg TIAC ORAL 12/07/16 16:30 01/06/17 16:29 12/10/16 17:16 Ondansetron HCl (Zofran) 4 mg Q6H PRN IVP Nausea & Vomiting 12/06/16 20:45 01/05/17 20:44 Polyethylene Glycol (Miralax) 17 gm HSPRN PRN ORAL Constipation 12/06/16 20:45 01/05/17 20:44 12/10/16 09:12 Sitagliptin Phosphate (Januvia) 50 mg ACBREAKFAST ORAL 12/08/16 06:30 01/07/17 06:29 12/10/16 06:23 Sodium Polystyrene Sulfonate (Kayexalate) 30 gm DAILY ORAL 12/10/16 09:00 01/09/17 08:59 12/10/16 09:03 Sodium Chloride (Sodium Chloride 1000ml bag) 1,000 ml @ 50 mls/hr Q20H IV 12/07/16 15:00 01/06/17 14:59 12/10/16 14:30 Zolpidem Tartrate (Ambien) 5 mg HSPRN PRN ORAL Insomnia 12/06/16 20:45 01/05/17 20:44 JEFF SOLIZ Dec 10, 2016 22:27
[2016-12-11 04:01] VITALS: BP 149/76
[2016-12-11] MEDS: sitaGLIPtin 50mg tab ORAL SCH (06:00)
[2016-12-11 08:00] VITALS: BP 188/78
[2016-12-11] MEDS: metFORMIN 500mg tab ORAL SCH (09:03)
[2016-12-11] MEDS: Docusate 250mg cap ORAL SCH ×2 (09:04→12:05)
[2016-12-11] MEDS: Sodium Polystyrene Sulfonate 15gm Powder ORAL SCH (09:05)
[2016-12-11] MEDS: Heparin 5000 units/ml inj SUBQ SCH (09:06)
[2016-12-11 09:35] VITALS: BP 163/89
[2016-12-11] MEDS: Morphine Sulfate 2mg/ml Inj IVP PRN (10:51)
[2016-12-11 11:59] VITALS: BP 151/63
[2016-12-11] MEDS ORDERED: Tubing IV Secondary IV ONE (15:09)
--- NOTE | 2016-12-11 19:09 | Pulmonology Progress Note ---
Assessment/Plan Problems: (1) Fracture (2) Multiple injuries due to trauma (3) Shoulder injury (4) Patella fracture (5) Rotator cuff injury Assessment/Plan pain management f/u Na pt/ot discharge planning d/c cho upon discharge Subjective ROS Limited/Unobtainable: No Allergies: Coded Allergies: No Known Allergies (Verified , 09/22/12) Objective Last 24 Hour Vital Signs Date Time Temp Pulse Resp B/P Pulse Ox O2 Delivery O2 Flow Rate FiO2 12/11/16 11:59 96.8 97 18 151/63 97 Room Air 12/11/16 09:35 109 163/89 12/11/16 08:00 97.2 95 18 188/78 97 Room Air 12/11/16 04:01 98.1 98 18 149/76 96 Room Air 12/10/16 20:00 98.2 103 18 155/80 96 Room Air Intake and Output 12/10/16 12/11/16 19:00 07:00 Intake Total 1320 ml 550 ml Output Total 600 ml 1000 ml Balance 720 ml -450 ml Intake Oral 720 ml IV Total 600 ml 550 ml Output Urine Total 600 ml 1000 ml # Bowel Movements 1 Objective General Appearance: WD/WN, no apparent distress Lines, tubes and drains: peripheral HEENT: normocephalic, atraumatic Neck: non-tender, supple Respiratory/Chest: chest wall non-tender, rhonchi - bilaterally Cardiovascular/Chest: normal peripheral pulses, normal rate Abdomen: normal bowel sounds Genitourinary/Rectal: normal genital exam Extremities: normal range of motion JEFF SOLIZ Dec 11, 2016 19:09
--- NOTE | 2016-12-12 12:41 | Discharge Summary ---
Discharge Summary Hospital Course Date of Admission Dec 06, 2016 at 20:06 Date of Discharge Dec 11, 2016 at 15:10 Admitting Diagnosis Gravely disabled. Fall and unable to ambulate. Dickson Gaviria is a 86 year old female who was admitted on Dec 06, 2016 at 20:06 for Gravely Disabled/Fall/Unable To Ambulate Hospital Course dc summary #[id number] Discharge Medications New Medications: Valsartan (Diovan) 80 Mg Tablet 1 TAB ORAL DAILY, #30 TAB Continued Medications: Celecoxib* (Celebrex*) 100 Mg Capsule 100 MG PO BID Clopidogrel Bisulfate* (Plavix*) 75 Mg Tablet 75 MG PO DAILY, #10 TAB Take 1 tablet by mouth daily. Docusate Sodium* (Docusate Sodium*) 250 Mg Capsule 250 MG PO TID Gabapentin* (Gabapentin*) 100 Mg Capsule 100 MG PO HS, #21 CAP Hydroxyzine HCl (Hydroxyzine HCl) 25 Mg Tab 25 MG PO QID Metformin Hcl* (Glucophage*) 500 Mg Tablet 500 MG PO BID, #20 TAB Take one tablet by mouth twice a day Nateglinide (Starlix) 120 Mg Tab 120 MG PO TID Sitagliptin (Januvia) 100 Mg Tab 100 MG PO DAILY Discharge Condition Upon Discharge: stable Discharge Disposition Patient was discharged to SNF[facility]Subacute Facility(03[facility] Discharge Diagnoses: Discharge Instructions Discharge Instructions Follow up with: MD at the facility Services Upon Discharge: physical therapy, occupational therapy Activity: as tolerated Halima Gale NP (Vanchtein) Dec 12, 2016 12:41
--- NOTE | 2016-12-13 00:08 | Discharge Summary 2 SIG ---
DATE OF ADMISSION: 12/06/2016 DATE OF DISCHARGE: 12/11/2016 REASON FOR ADMISSION: The patient is an 86-year-old female with a history of hypertension, diabetes, and left eye blindness, was using her walker, was trying to turn but instead lost her balance and fell on her left side. She fell on her left shoulder and left knee. She complained of severe pain on the left shoulder and knee whenever she attempted to move either of the joints. She was unable to ambulate. She denied head injury. She denied neck pain. She denied hip pain. She denied chest pain or shortness of breath. She denies abdominal pain. No other complaints. Workup in the emergency room revealed mild leukocytosis. Urinalysis was negative. Sodium was 128. Chest x-ray revealed questionable fracture of greater tuberosity of left humeral head. Left shoulder x-ray revealed nondisplaced fracture through the greater tuberosity of the left humeral head. Left knee x-ray was suggestive of nondisplaced fracture of the knee patella. ADMITTING DIAGNOSES: 1. Status post mechanical fall. 2. Acute hyponatremia. 3. Nondisplaced fracture, left shoulder. 4. Nondisplaced fracture of the left knee patella. 5. Left shoulder pain. 6. Left knee pain. 7. Hypertension. 8. Diabetes. 9. Left eye blindness. HOSPITAL COURSE: The patient was admitted to Med/Surg floor. CT of the left shoulder was done as recommended by Radiology. The patient had a sling on. Pain management was provided. Ortho evaluation was requested. Fall precaution was provided. The patient was working with physical and occupational therapy. DVT prophylaxis was provided. Hydrochlorothiazide was discontinued. Hyponatremia was likely secondary to diuretic use. Sodium is gently increasing. Gentle IV fluids were provided. Blood pressure was managed with ARB. Blood sugar was managed with sliding scale. Bowel regimen instituted. CT of the humerus revealed comminuted fracture of the greater tuberosity. Ortho consult had seen and evaluated the patient. Orthopedic surgeon reviewed the CT scan of the left shoulder and confirmed that the results demonstrated nondisplaced comminuted fracture of the greater tuberosity of the left proximal humerus, but no osseous abnormality of the elbow. No surgical intervention was recommended at this time. Sling for comfort as a treatment of choice, pain management. The patient needed to go for short-term rehab, PT/OT. Transfer was arranged to [facility]. Blood pressure and blood sugar remained stable with current medication and closely watch sodium at the residential facility, off diuretic. Continue PT/OT and pain management. The patient was stable for discharge. DISCHARGE DIAGNOSES: 1. Status post mechanical fall. 2. Acute hyponatremia, likely secondary to diuretic use. 3. Nondisplaced comminuted fracture of the left greater tuberosity. 4. Possible nondisplaced fracture of the radial head. 5. Possible nondisplaced fracture of the knee patella. 6. Left shoulder pain. 7. Left knee pain. 8. Hypertension. 9. Diabetes. 10. Left eye blindness. DISCHARGE INSTRUCTIONS: The patient was discharged to residential facility for short-term rehabilitation. DISCHARGE MEDICATIONS: See medication reconciliation list. Jorge Pelaez M.D. I have been assigned to dictate discharge summary on this account and I was not involved in the patient's management. Halima Gale N.P. (vanchtein) DR: LAURA JOB#: [id number] CC:
== END 2016-12-11 15:10 | DRG 563 ==
LOC: EDBD 17:08 → EMR 17:24 → EDBEDREQ 19:52 → 4W 20:06 → EDBEDREQ 20:51
DX: S42.255A Nondisplaced fracture of greater tuberosity of left humerus, initial encounter for closed fracture (principal); E87.1 Hypo-osmolality and hyponatremia; E11.9 Type 2 diabetes mellitus without complications; G30.9 Alzheimer's disease, unspecified; F02.80 Dementia in other diseases classified elsewhere, unspecified severity, without behavioral disturbance, psychotic disturbance, mood disturbance, and anxiety; S82.002A Unspecified fracture of left patella, initial encounter for closed fracture; S52.125A Nondisplaced fracture of head of left radius, initial encounter for closed fracture; W19.XXXA Unspecified fall, initial encounter; I10 Essential (primary) hypertension; H54.42 Blindness, left eye, normal vision right eye; S50.02XA Contusion of left elbow, initial encounter
CPT/HCPCS: 29240; 29530; 36415; 71010; 80048; 80053; 81001; 82962; 85025; J1815